=== PATIENT | female | born 1955 | race Caucasian/White ===

== ENCOUNTER 2024-09-28 15:50 | Emergency (ER) | payer OTHER ==
--- OUTSIDE RECORDS SUMMARY | 2024-09-28 15:53 | XMS REPORT | Continuity of Care Document ---
Author Name Unknown Address [address] [place], [place] [address]onnect Address [address] [place] [address] [address] [place] [address] Care Team Providers Care Director Software Name Role Phone [email or web address] Attending Clinician Unavaila ble [email or web address] Admitting Clinician Unavaila ble Encounters Start Date/Time End Date/Time Encounter Type Admission Type Attending Clinicians Care Facility Care Department Encounter ID Source 2023-08-22 00:00:00 2023-08-22 00:00:00 Outpatient [email or web address] [email or web address] [facility] [id number] [facility]
[2024-09-28 16:48] LABS: Absolute Basophils 0.1 K/uL (0-0.5); Absolute Eosinophils 0.2 K/uL (0-0.5); Absolute Lymphocytes (CBC) 1.7 K/uL (0.7-4.9); Absolute Monocytes 0.3 K/uL (0.1-1.3); Absolute Neutrophil 3.6 K/uL (1.8-8.0); Eosinophils % 4.2 % (0-4.4); Hematocrit 37.8 % (36.0-45.0); Hemoglobin 12.7 g/dL (12.0-15.0); Lymphocytes % 28.7 % (15.3-44.8); MCH 30.9 pg (27.0-35.0); MCHC 33.5 g/dL (32.0-36.0); MCV 92.4 fL (80-100); MPV 8.5 fL (7.6-11.3); Monocytes % 5.5 % (3.3-12.3); Neutrophils % 60.6 % (41.7-73.7); Nucleated Red Blood Cells % 0.1 % (0-0); Platelets 219 thou/uL (152-406); RBC Red Blood Cell Count 4.09 M/uL (3.86-4.86)
--- NOTE | 2024-09-28 16:59 | RAD REPORT ---
EXAM: Chest Single View HISTORY: right neck/shoulder pain COMPARISON: None. FINDINGS: LUNGS/PLEURA: The lungs are clear. No pleural effusions or pneumothorax. No pulmonary edema. MEDIASTINUM: The mediastinal silhouette is within normal limits. CARDIAC: The cardiac silhouette is within normal limits. UPPER ABDOMEN: No significant abnormality. BONES: Age-indeterminate right lateral second rib fracture. LINES/TUBES/OTHER: N/A IMPRESSION: No evidence of acute cardiopulmonary disease.
--- NOTE | 2024-09-28 16:59 | RAD REPORT ---
EXAMINATION: Shoulder Right 2+ Views CLINICAL INDICATION: Female, 68 years old. PAIN RIGHT COMPARISON: No prior exam. FINDINGS: Age-indeterminate, nondisplaced right lateral second rib fracture. No right shoulder fractures identi fied, however. No pneumothorax. No malalignment/dislocation. No significant focal degenerative change. Other: n/a IMPRESSION: 1. No right shoulder fracture or dislocation. 2. Age-indeterminate right lateral second rib fracture.
--- NOTE | 2024-09-28 17:01 | RAD REPORT ---
EXAMINATION: CT CERVICAL SPINE WITHOUT CONTRAST CLINICAL INDICATION: Female, 68 years old. neck pain TECHNIQUE: Axial CT images through the cervical spine were obtained without intravenous contrast. Sag ittal and coronal reformatted images were created from the data set. One or more of the following dose reduction techniques were used: Automated exposure control, adjustment of the mA and/or kV accor ding to patient size, and/or iterative reconstruction. Unless otherwise specified, incidental findings do not require dedicated imaging follow-up. [id number]. COMPARISON: No prior exam. FINDINGS: ALIGNMENT: Reversal of the normal cervical lordosis. BONE: Vertebral body heights are maintained. No aggressive osseous lesions. DISCS: Mild diffuse disc height loss. LEVELS: No high-grade central spinal stenosis. Neural foraminal narrowing is present bilaterally but most pronounced at C3-4 where the narrowing is moderate bilaterally. SOFT TISSUE: No significant abnormalities in the soft tissue of the neck. The visualized lung apices are clear. IMPRESSION: No acute cervical spine abnormalities. Mild cervical spondylosis.
[2024-09-28] MEDS ORDERED: GABAPENTIN 300 MG CAP ONE (17:03)
[2024-09-28] MEDS ORDERED: HYDROCODONE/APAP 5/325 MG TAB ONE (17:03)
[2024-09-28 17:04] LABS: Anion Gap 7.9 mEq/L (5.0-15.0); Potassium 3.9 mEq/L (3.5-5.1); Troponin High Sensitivity 4.4 pg/mL (<58.9)
--- NOTE | 2024-09-28 17:31 | EDPHYS ---
Physician Documentation [facility] Name: Alma Delia Gotti Age: 68 yrs Sex: Female : 1955 Arrival Date: 09/28/2024 Time: 15:50 Bed 14 Private MD: ED Physician Paul Otero HPI: 09/28 16:58 This 68 yrs old Female presents to ER via Ambulatory with complaints of Back Pain, rn Shoulder Pain. 16:58 The patient or guardian complains of pain, that is chronic. right shoulder. rn 16:58 Onset: The symptoms/episode began/occurred 3 day(s) ago. Modifying factors: the rn symptoms are alleviated by nothing. The symptoms are aggravated by movement, rotation of arm. Severity of symptoms: At their worst the symptoms were moderate, in the emergency department the symptoms are unchanged. The patient has experienced similar episodes in the past. The patient has not recently seen a physician. Patient reports right shoulder pain, trapezius pain for the last 3 days. Denies injury or trauma. Has had this before but worse over the last few days. Denies any injury or fall. No chest pain or shortness of breath. No abdominal pain. No back pain. Denies neck pain. No weakness or numbness.. Historical: - Allergies: 16:16 No Known Allergies; kc6 - PMHx: 16:14 Osteoporosis; Migraine; Endometriosis of vagina; kc6 - PSHx: 16:14 colon resection; section; kc6 - Immunization history:: Adult Immunizations up to date. - Infectious Disease History:: Denies. - Social history:: Smoking status: Patient denies any tobacco usage or history of. - Family history:: not pertinent. - Hospitalizations: : No recent hospitalization is reported. ROS: 16:58 Constitutional: Negative for fever, chills, and weight loss, Neck: Negative for injury, rn pain, and swelling, Cardiovascular: Negative for chest pain, palpitations, and edema, Respiratory: Negative for shortness of breath, cough, wheezing, and pleuritic chest pain, Abdomen/GI: Negative for abdominal pain, nausea, vomiting, diarrhea, and constipation, Back: Negative for injury and pain, MS/Extremity: Positive for right shoulder pain Skin: Negative for injury, rash, and discoloration, Neuro: Negative for headache, weakness, numbness, tingling, and seizure, Exam: 16:58 Constitutional: This is a well developed, well nourished patient who is awake, alert, rn and in no acute distress. Neck: No midline tenderness. No nuchal rigidity Cardiovascular: Regular rate and rhythm. No pulse deficits. Respiratory: No increased work of breathing, no retractions or nasal flaring. Abdomen/GI: Soft, non-tender Back: No spinal tenderness. No costovertebral tenderness. Full range of motion. MS/ Extremity: Pulses equal, no cyanosis. Neurovascular intact. Full, normal range of motion. Equal circumference. Neuro: Awake and alert, GCS 15, oriented to person, place, time, and situation. Cranial nerves II-XII grossly intact. Motor strength 5/5 in all extremities. Sensory grossly intact. Cerebellar exam normal. Vital Signs: 16:12 BP 116 / 67; Pulse 83; Resp 17 S; Pulse Ox 98% on R/A; Weight 59.87 kg (R); Height 5 kc6 ft. 4 in. (R); Pain 4/10; 17:00 BP 120 / 63; Pulse 70; Resp 16; Temp 98.5; Pulse Ox 98% ; me1 17:19 Pain 4/10; me1 16:12 Body Mass Index 22.66 (59.87 kg, 162.56 cm) kc6 16:12 Pain Scale: Adult kc6 17:19 Pain Scale: Adult me1 MDM: 16:06 Medical Screening Exam initiated rn 16:58 ED course: Patient reports minimal to no pain at this time because took rn [id number] pain medication prior to coming in.. 17:29 Differential diagnosis: DJD, tendonitis, Cervical radiculopathy. Data reviewed: vital rn signs, nurses notes, lab test result(s), EKG, radiologic studies, CT scan, plain films, and as a result, I will discharge patient. Counseling: I had a detailed discussion with the patient and/or guardian regarding the historical points, exam findings, and any diagnostic results supporting the discharge/admit diagnosis, lab results, radiology results, the need for outpatient follow up, to return to the emergency department if symptoms worsen or persist or if there are any questions or concerns that arise at home. Special discussion: I discussed with the patient/guardian in detail that at this point there is no indication for admission to the hospital. It is understood, however, that if the symptoms persist or worsen the patient needs to return immediately for re-evaluation. Further emergent ED testing is not indicated at this point in time. I discussed with the patient/guardian in detail the need to arrange with the PCP or specialist further outpatient testing, MRI, Based on the history and exam findings, there is no indication for further emergent testing or inpatient evaluation. I discussed with the patient/guardian the need to see the back specialist for further evaluation of the symptoms. 17:29 ED course: Troponin negative, ECG without ischemia. C3 and C4 radiculopathy and rn stenosis consistent with location of patient's pain and symptoms.. 09/28 16:20 Order name: Basic Metabolic Panel; Complete Time: 17:05 rn 09/28 16:20 Order name: CBC with Diff; Complete Time: 17:05 rn 09/28 16:20 Order name: Troponin HS; Complete Time: 17:05 rn 09/28 16:20 Order name: CT C Spine; Complete Time: 17:05 rn 09/28 16:20 Order name: XRAY Shoulder RIGHT 2 view; Complete Time: 17:05 rn 09/28 16:20 Order name: XRAY Chest (1 view); Complete Time: 17:05 rn 09/28 16:20 Order name: EKG; Complete Time: 16:21 rn 09/28 16:20 Order name: Cardiac monitoring; Complete Time: 17:00 rn 09/28 16:20 Order name: EKG - Nurse/Tech; Complete Time: 17:00 rn 09/28 16:20 Order name: IV Saline Lock; Complete Time: 17:00 rn 09/28 16:20 Order name: Labs collected and sent; Complete Time: 17:00 rn 09/28 16:20 Order name: O2 Per Protocol; Complete Time: 17:00 rn 09/28 16:20 Order name: O2 Sat Monitoring; Complete Time: 17:00 rn Administered Medications: 17:06 Drug: Gabapentin PO 300 mg PO once Route: PO; me1 17:18 Follow up: Response: No adverse reaction; Pain is decreased me1 17:06 Drug: HYDROcodone-acetaminophen PO 5 mg-325 mg 1 tabs PO once Route: PO; me1 17:19 Follow up: Pain 4/10 Adult; Response: No adverse reaction; Pain is decreased me1 Disposition Summary: 09/28/24 17:31 Discharge Ordered Notes: Location: Home rn Problem: an acute exacerbation rn Symptoms: have improved rn Condition: Stable rn Diagnosis - Cervical disc disorder with radiculopathy, high cervical region rn Followup: rn - With: Private Physician - When: As needed - Reason: Recheck today's complaints, Re-evaluation by your physician Discharge Instructions: - Discharge Summary Sheet rn - Cervical Radiculopathy rn Forms: - Medication Reconciliation Form rn - Antibiotic international controller - Prescription Opioid Use rn - Patient Portal Instructions rn - Leadership Thank You Letter rn Prescriptions: - gabapentin 100 mg Oral capsule - take 1 capsule ORAL route every 12 hours As needed; 14 capsule; Refills: 0, rn Product Selection Permitted - Tramadol 50 mg Oral Tablet - take 1 tablet ORAL route every 8 hours as needed; 12 tablet; Refills: 0, rn Product Selection Permitted Signatures: Dispatcher [employer] Paul Swenson MD MD rn Campbell, Kaitlyn RN RN kc6 Albina Carrillo RN RN me1
--- NOTE | 2024-09-28 17:31 | ER ---
[facility] Name: Alma Delia Gotti Age: 68 yrs Sex: Female : 1955 Arrival Date: 09/28/2024 Time: 15:50 Bed 14 Private MD: Diagnosis: Cervical disc disorder with radiculopathy, high cervical region Presentation: 09/28 16:12 Chief complaint: Patient states: right upper back, scapular pain that radiates to her kc6 right arm x3 days. reports lifting weights recently, but doesn't think she injured it. Coronavirus screen: At this time, the client does not indicate any symptoms associated with coronavirus-19. Ebola Screen: No symptoms or risks identified at this time. Initial Sepsis Screen: Does the patient meet any 2 criteria? No. Patient's initial sepsis screen is negative. Does the patient have a suspected source of infection? No. Patient's initial sepsis screen is negative. Risk Assessment: Do you want to hurt yourself or someone else?. Onset of symptoms was September 28, 2024. 16:12 Method Of Arrival: Ambulatory [facility] 16:12 Acuity: ANDREA 4 kc6 Historical: - Allergies: 16:16 No Known Allergies; kc6 - PMHx: 16:14 Osteoporosis; Migraine; Endometriosis of vagina; kc6 - PSHx: 16:14 colon resection; section; kc6 - Immunization history:: Adult Immunizations up to date. - Infectious Disease History:: Denies. - Social history:: Smoking status: Patient denies any tobacco usage or history of. - Family history:: not pertinent. - Hospitalizations: : No recent hospitalization is reported. Screenin:18 [facility] ED Fall Risk Assessment (Adult) History of falling in the last 3 months, me1 including since admission No falls in past 3 months (0 pts) Confusion or Disorientation No (0 pts) Intoxicated or Sedated No (0 pts) Impaired Gait No (0 pts) Mobility Assist Device Used No (0 pt) Altered Elimination No (0 pt) Score/Fall Risk Level 0 - 2 = Low Risk Maintained a safe environment, Provided non-skid footwear, Hourly rounding (assess needs \T\ fall precautionary measures) done. Abuse screen: Denies threats or abuse. Nutritional screening: No deficits noted. Tuberculosis screening: No symptoms or risk factors identified. Assessment: 16:16 General: Appears uncomfortable, well groomed, well developed, well nourished, Behavior me1 is calm, cooperative, appropriate for age, Reports right upper back, scapular pain that radiates to her right arm x3 days. reports lifting weights recently, but doesn't think she injured it. Pain: Complains of pain in right scapular area Pain radiates to right arm Pain currently is 7 out of 10 on a pain scale. Quality of pain is described as sharp, Pain began gradually, 2-3 days ago. Is continuous. 16:18 Neuro: Level of Consciousness is awake, alert, obeys commands, Oriented to person, me1 place, time, situation, Appropriate for age. Cardiovascular: Patient's skin is warm and dry. Respiratory: Airway is patent Trachea midline Respiratory effort is even, unlabored, Respiratory pattern is regular, symmetrical. GI: No signs and/or symptoms were reported involving the gastrointestinal system. : No signs and/or symptoms were reported regarding the genitourinary system. EENT: No signs and/or symptoms were reported regarding the EENT system. Derm: Skin is intact, is healthy with good turgor, Skin is pink, warm \T\ dry. Musculoskeletal: Reports pain in back and right scapular area. Injury Description: right upper back, scapular pain that radiates to her right arm x3 days. reports lifting weights recently, but doesn't think she injured it. Vital Signs: 16:12 BP 116 / 67; Pulse 83; Resp 17 S; Pulse Ox 98% on R/A; Weight 59.87 kg (R); Height 5 kc6 ft. 4 in. (R); Pain 4/10; 17:00 BP 120 / 63; Pulse 70; Resp 16; Temp 98.5; Pulse Ox 98% ; me1 17:19 Pain 4/10; me1 16:12 Body Mass Index 22.66 (59.87 kg, 162.56 cm) kc6 16:12 Pain Scale: Adult kc6 17:19 Pain Scale: Adult me1 ED Course: 16:03 Patient arrived in ED. mg5 16:06 Paul Otero MD is Attending Physician. rn 16:11 Albina Carrillo RN is Primary Nurse. me1 16:13 Triage completed. kc6 16:14 Arm band placed on. kc6 16:18 Patient has correct armband on for positive identification. Bed in low position. Call me1 light in reach. Side rails up X2. Provided Education on: POC. Verbalized understanding.. Client placed on continuous cardiac and pulse oximetry monitoring. NIBP monitoring applied. engine monitor on. Pulse ox on. NIBP on. 16:18 No provider procedures requiring assistance completed. me1 16:38 XRAY Shoulder RIGHT 2 view In Process Unspecified. EDMS 16:38 XRAY Chest (1 view) In Process Unspecified. EDMS 16:46 CT C Spine In Process Unspecified. EDMS 16:57 Inserted saline lock: 20 gauge in right antecubital area, using aseptic technique. nh2 Blood collected. Flushed with 10 mL NS. 16:57 Basic Metabolic Panel Sent. nh2 16:57 Troponin HS Sent. nh2 17:01 Initial lab(s) drawn, by ED staff, sent to lab. EKG done, by ED staff, reviewed by me1 Paul Otero MD. 17:41 IV discontinued, intact, bleeding controlled, No redness/swelling at site. Pressure me1 dressing applied. Administered Medications: 17:06 Drug: Gabapentin PO 300 mg PO once Route: PO; me1 17:18 Follow up: Response: No adverse reaction; Pain is decreased me1 17:06 Drug: HYDROcodone-acetaminophen PO 5 mg-325 mg 1 tabs PO once Route: PO; me1 17:19 Follow up: Pain 4/10 Adult; Response: No adverse reaction; Pain is decreased me1 Medication: 16:18 VIS not applicable for this client. me1 Outcome: 17:31 Discharge ordered by . paula 17:41 Discharged to home ambulatory, with significant other, me1 17:41 Condition: stable 17:41 Discharge instructions given to patient, significant other, Instructed on discharge instructions, follow up and referral plans. medication usage, Demonstrated understanding of instructions, follow-up care, medications, Prescriptions given X 2, 17:42 Patient left the ED. me1 Signatures: Dispatcher [employer] Paul Swenson MD MD rn Campbell, Kaitlyn, RN RN kc6 Albina Carrillo RN RN me1 Marga Bae 5 Michel Metz Jr nh2 Corrections: (The following items were deleted from the chart) 16:16 16:12 Chief complaint: Patient states: right upper back, scapular pain that radiates to me1 her right arm x3 days. reports lifting weights recently, but doesn't think she injured it. kc6 16:19 16:16 Pain: Complains of pain in right scapular area Pain radiates to right arm Pain me1me1
[2024-09-28 18:49] VITALS: O2SAT 98
[2024-09-28 18:55] VITALS: BP 120/63; TEMP 98.5
== END 2024-09-28 17:42 | disposition home or self-care (01) ==
LOC: ER 15:50
DX: M50.11 Cervical disc disorder with radiculopathy, high cervical region (principal)
CPT/HCPCS: 36415; 71045; 72125; 80048; 84484; 85025; 99284